=== PATIENT | male | born 1955 | race Two or more races ===

== ENCOUNTER 2017-07-14 00:20 | Emergency (ER) | payer MEDICARE, OTHER ==
[~2017-07-14] VITALS: Ht 175.3 cm; Wt 121.1 kg
--- NOTE | 2017-07-14 00:21 | NUR ---
BBRA WITH C/C OF SYNCOPE PER EMS. PATIENT STATES HE "PASSED OUT WHILE ON THE TOILET, FOUND ON THE FLOOR". DRIED UP BLOOD NOTED IN NOSTRILS AND MOUTH. NO MISSING TEETH NOTED. NO LAC OR BRUSING NOTED ON FACIAL REGION. PT STATES HIS L SHOULDER HURTS 10/10. PT IS AAOX4. RESP EVEN AND UNLABORED. NO S/S OF ACUTE DISTRESS NOTED. SKIN IN PINK AND WARM TO TOUCH. AWAITING MD HENSON.
--- NOTE | 2017-07-14 00:25 | NUR ---
PT PLACED ON C-COLLAR BY EMT PER MD
[2017-07-14] MEDS ORDERED: ACETAMINOPHEN ES 500 MG TABLET PO ONE (00:30)
[2017-07-14] MEDS ORDERED: ACETAMINOPHEN ES 500 MG TABLET ONE (00:49)
--- NOTE | 2017-07-14 00:55 | NUR ---
EMT BEDSIDE FOR ACCUCHECK
[2017-07-14 00:56] LABS: BASOPHILS # (AUTO) 0.1 /CMM (0.0-0.2); BASOPHILS % (AUTO) 0.8 % (0.0-2.0); EOSINOPHILS # (AUTO) 0.1 /CMM (0.0-0.7); EOSINOPHILS % (AUTO) 1.9 % (0.0-6.0); HEMATOCRIT 42 % (39-51); HEMOGLOBIN 14.5 g/dL (13.5-17.5); MEAN CORPUSCULAR HEMOGLOBIN 33 PG (26.0-33.0); MEAN CORPUSCULAR HGB CONC 34 g/dl (31.0-36.0); MEAN CORPUSCULAR VOLUME 96 fL (80-96); MONOCYTES # (AUTO) 0.4 /CMM (0.1-1.30); NEUTROPHILS # (AUTO) 3.1 /CMM (1.8-8.9); NEUTROPHILS % (AUTO) 40.3 % (43.0-81.0); PLATELET COUNT (AUTO) 175 /CMM (150-450); RDW COEFFICIENT OF VARIATION 17.5 (11.5-15.0); RED BLOOD CELL COUNT(AUTO) 4.39 MIL/uL (4.5-6.0); WHITE BLOOD COUNT (AUTO) 7.6 K/uL (4.3-11.0)
[2017-07-14 01:09] LABS: CALCIUM, SERUM 8.8 mg/dL (8.5-10.1); CARBON DIOXIDE 26 mmol/L (21-32); CHLORIDE 101 mmol/L (98-107); CREATININE 0.7 mg/dL (0.6-1.3); GLUCOSE 107 mg/dL (74-106); POTASSIUM 3.9 mmol/L (3.5-5.1); SODIUM SERUM 137 mmol/L (136-145); UREA NITROGEN, BLOOD 10 mg/dL (7-18)
[2017-07-14 01:17] LABS: TROPONIN I < 0.017 ng/mL (0.00-0.056)
--- NOTE | 2017-07-14 01:30 | NUR ---
PT TO CT
--- NOTE | 2017-07-14 01:40 | NUR ---
PT STATES PAIN LEVEL 10/10 FOR L SHOULDER. MADE AWARE
--- NOTE | 2017-07-14 01:53 | NUR ---
Patient is resting comfortably in bed with eyes closed. Easily aroused. VSS.
--- NOTE | 2017-07-14 02:45 | NUR ---
PT RESTING IN BED WITH EYES OPEN. VSS AND NO S/S OF ACUTE DISTRESS. AWAITING FOR TRANSPORT FOR PT.
[2017-07-14] MEDS ORDERED: HYDROCODONE/APAP 10/325MG 1 EA TABLET ONE (02:58)
[2017-07-14] MEDS ORDERED: HYDROCODONE/APAP 10/325MG 1 EA TABLET PO ONE (03:00)
--- NOTE | 2017-07-14 03:38 | NUR ---
Patient discharged to [facility] care in stable condition via [facility] transport. Written and verbal after care instructions given. Patient verbalizes understanding of instruction.IV removed. Catheter intact and site benign. Pressure and 4x4 applied to site. No bleeding noted. Pt carried out via gurney by ems.
[2017-07-14 03:40] VITALS: BP 134/82
== END 2017-07-14 03:41 | disposition home or self-care (01) ==
LOC: ER 00:22
DX: S09.90XA Unspecified injury of head, initial encounter (principal); S42.202A Unspecified fracture of upper end of left humerus, initial encounter for closed fracture; F10.129 Alcohol abuse with intoxication, unspecified; F32.9 Major depressive disorder, single episode, unspecified; F41.9 Anxiety disorder, unspecified; N40.0 Benign prostatic hyperplasia without lower urinary tract symptoms; X58.XXXA Exposure to other specified factors, initial encounter; Y93.89 Activity, other specified; Y92.002 Bathroom of unspecified non-institutional (private) residence as the place of occurrence of the external cause; Y99.8 Other external cause status
CPT/HCPCS: 36415; 70450; 70486; 71045; 72125; 73030; 80048; 82962; 84484; 85025; 93005; 99285; A4606; L0172; Z7610